=== PATIENT | female | born 2000 | race Asian ===

== ENCOUNTER 2023-03-30 15:19 | Outpatient (CLI) | payer MEDICAID ==
--- NOTE | 2023-03-30 16:32 | Ultrasound Report ---
PROCEDURE: OB First Trimester w/TV INDICATIONS: POSITIVE TEST OUTSIDE/PRIOR DATING DATA: Last menstrual period (LMP): 01/10/2023. LMP-based estimated date of delivery (KAIN): 10/17/2023. First dating scan (date and location): Today's exam. Estimated date of delivery (KAIN) from first dating scan: 10/15/2023. TECHNIQUE: Real-time scanning was performed of the fetus and maternal pelvic organs, with image documentation. Endovaginal scanning was also performed to better visualize the fetus and maternal ovaries. COMPARISON: None. FINDINGS: Intrauterine gestational sac present. Embryo: The embryo measures 4.8 cm, corresponding to 11 weeks 4 days. Heart rate: 176 bpm. Other: No perigestational fluid collection. Measurement variability in dating: +/- 4 weeks by LMP, +/- 7 days by mean sac diameter (use before 6 weeks gestation if crown-rump length not able to be measured), +/- 5 days by crown-rump length (6-12 weeks gestation). Maternal organs: Corpus luteum in the right ovary. 3.9 cm intramural fibroid in the anterior uterus. IMPRESSION: Single living intrauterine at 11 weeks 4 days, KAIN of 10/15/2023. Findings are concordant wit h clinical dating. Reviewed by: Jose Gonzalez on 03/30/2023 4:31 PM PDT Approved by: Jose Gonzalez on 03/30/2023 4:31 PM PDT Station ID: [id number]
== END 2023-03-30 15:20 | disposition home or self-care (01) ==
LOC: DI 15:19
PROVIDERS: ATTEND Family Medicine
DX: O34.81 Maternal care for other abnormalities of pelvic organs, first trimester (principal); N83.11 Corpus luteum cyst of right ovary; Z3A.11 11 weeks gestation of pregnancy

== ENCOUNTER 2023-03-31 13:51 | Outpatient (CLI) | payer MEDICAID | END 2023-03-31 13:52 | disposition home or self-care (01) | LOC: LAB.N 13:51 | PROVIDERS: ATTEND Nurse Practitioner | DX: Z53.9 Procedure and treatment not carried out, unspecified reason (principal) ==

== ENCOUNTER 2023-03-31 14:26 | Outpatient (CLI) | payer MEDICAID ==
[2023-03-31 15:05] LABS: BILIRUBIN,URINE NEGATIVE (NEGATIVE); GLUCOSE, URINE (UA) NEGATIVE (NEGATIVE); KETONES,URINE (UA) NEGATIVE (NEGATIVE); LEUKOCYTE ESTERASE, URINE LARGE (NEGATIVE); NITRITE,URINE NEGATIVE (NEGATIVE); OCCULT BLOOD,URINE NEGATIVE (NEGATIVE); PH,URINE 7.5 PH (5.0-7.5); PROTEIN,URINE TRACE mg/dL (NEGATIVE); UROBILINOGEN,URINE 0.2 (NORMAL) E.U./dL (NORMAL)
[2023-03-31 15:14] LABS: BASOPHILS # (AUTO) 0.1 10^3/uL (0.0-0.1); BASOPHILS % (AUTO) 0.8 %; EOSINOPHILS # (AUTO) 0.2 10^3/uL (0.0-0.7); HGB - HEMOGLOBIN 14.5 g/dL (12.0-16.0); LYMPHOCYTES # (AUTO) 2.5 10^3/uL (1.5-3.5); LYMPHOCYTES % (AUTO) 29.1 %; MEAN CORPUSCULAR HEMOGLOBIN 29.6 pg (27.0-31.0); MEAN CORPUSCULAR HGB CONC 34.5 g/dL (32.0-36.0); MEAN CORPUSCULAR VOLUME 85.7 fL (81.0-99.0); MONOCYTES # (AUTO) 0.6 10^3/uL (0.0-1.0); MONOCYTES % (AUTO) 7.2 %; NEUTROPHILS # (AUTO) 5.3 10^3/uL (1.5-6.6); NEUTROPHILS % (AUTO) 60.7 %; PLT - PLATELET COUNT 311 10^3/uL (130-450); RED CELL DISTRIBUTION WIDTH 13.4 % (12.0-15.0); WHITE BLOOD COUNT 8.7 x10^3/uL (4.8-10.8)
[2023-03-31 15:29] LABS: CLARITY,URINE HAZY (CLEAR)
[2023-03-31 15:41] LABS: AMORPHOUS SEDIMENT,UR Moderate /LPF; BACTERIA,URINE Few /HPF (None Seen); RBC,URINE 0-5 /HPF (0-5); SQUAMOUS EPITHELIAL CELL,UR MANY Squamous (<= Few)
[2023-04-01 08:10] LABS: HBsAG SCREEN Negative (Negative); RPR Non Reactive (Non Reactive); VARICELLA-ZOSTER AB IGG <135 index (Immune >165)
[2023-04-01 19:07] LABS: HCV AB Non Reactive (Non Reactive); HIV SCREEN 4TH GENERATION Non Reactive (Non Reactive)
== END 2023-03-31 14:27 | disposition home or self-care (01) ==
LOC: LAB 14:26
PROVIDERS: ATTEND Nurse Practitioner
DX: Z34.80 Encounter for supervision of other normal pregnancy, unspecified trimester (principal); Z36.89 Encounter for other specified antenatal screening
CPT/HCPCS: 36415; 81001; 85025; 86592; 86762; 86787; 86803; 86850; 86900; 86901; 87086; 87340; 87389

== ENCOUNTER 2023-04-28 15:44 | Outpatient (CLI) | payer MEDICAID ==
[2023-04-28 21:10] LABS: BACTERIAL VAGINOSIS DNA POSITIVE (NEGATIVE); CANDIDA GLABRATA DNA NEGATIVE (NEGATIVE); CANDIDA GROUP DNA NEGATIVE (NEGATIVE); CANDIDA KRUSEI DNA NEGATIVE (NEGATIVE); TRICHOMONAS VAGINALIS DNA NEGATIVE (NEGATIVE)
[2023-04-28 22:22] LABS: CHLAMYDIA TRACHOMATIS DNA NEGATIVE (NEGATIVE); NEISSERIA GONORRHOEAE DNA NEGATIVE (NEGATIVE)
== END 2023-04-28 15:45 | disposition home or self-care (01) ==
LOC: LAB.WC 15:44
PROVIDERS: ATTEND Obstetrics & Gynecology
DX: N89.8 Other specified noninflammatory disorders of vagina (principal); Z11.3 Encounter for screening for infections with a predominantly sexual mode of transmission
CPT/HCPCS: 81514; 87491; 87591; 87661

== ENCOUNTER 2023-05-26 10:13 | Outpatient (CLI) | payer MEDICAID ==
[2023-05-26 11:53] LABS: ESTIMATED AVERAGE GLUCOSE 103 mg/dL (70-100); HEMOGLOBIN A1c% 5.2 % (4.27-6.07)
[2023-05-31 13:10] LABS: AFP MOM See interpretation. (.); AFP VALUE 63.2 ng/mL (.); GESTAT. AGE METHOD As provided (.); MATERNAL AGE AT EDD 25.8 yr (.); OPEN SPINA BIFIDA RISK 1 IN See interpretation. (.); RESULTS Report (.); TEST RESULTS See interpretation. (.)
== END 2023-05-26 10:14 | disposition home or self-care (01) ==
LOC: LAB 10:13
PROVIDERS: ATTEND Obstetrics & Gynecology
DX: O99.210 Obesity complicating pregnancy, unspecified trimester (principal); E66.9 Obesity, unspecified
CPT/HCPCS: 36415; 82105; 83036

== ENCOUNTER 2023-06-04 16:08 | Outpatient (CLI) | payer MEDICAID ==
--- NOTE | 2023-06-05 08:26 | Ultrasound Report ---
PROCEDURE: OB Detailed Eval INDICATIONS: SUPERVISION OF OUTSIDE/PRIOR DATING DATA: Last menstrual period (LMP): 01/10/2023. LMP-based estimated date of delivery (KAIN): 10/17/2023. First dating scan (date and location): 03/30/2023. Estimated date of delivery (KAIN) from first dating scan: 10/15/2023. TECHNIQUE: Real-time scanning was performed of the fetus, with image documentation and biometric measurements. COMPARISON: 03/30/2023 FINDINGS: General: A single living intrauterine gestation is present. Presentation: Vertex Placenta: Placental position is anterior, without previa. Amniotic fluid index: 15.6 cm, within normal limits for gestational age. heart rate: 158 beats per minute. Maternal cervical canal: 4.9 cm long; normal length is 2.5 cm or more. biometrics: Biparietal diameter: 4.97 cm, 21 weeks, 51st percentile Head circumference: 19.1 cm, 21 weeks and 3 days, 58th percentile Abdominal circumference: 16.78 cm, 21 weeks and 5 days, 68th percentile Femur length: 3.42 cm, 20 weeks and 5 days, 32nd percentile Estimated gestational age from initial scan: 21 weeks Composite gestational age from present scan: 21 weeks Estimated weight and percentile: 413 g, 61st percentile Measurement variability in biometric dating: +/- 10 days from 12-20 weeks gestation, +/- 2 weeks from 20-30 weeks gestation, +/- 3 weeks at 30 weeks gestation or later. Anatomic survey: Neuro: Ventricles are normal at less than 10 mm. Cisterna magna is normal at 3-11 mm. Cerebellum is normal in size and morphology. Nuchal skin fold: Normal at less than 6 mm between 14 and 20 weeks gestational age. Face: Nose and lips, facial profile are normal. Spine: No evidence for spina bifida. Heart: 4-chambered heart is present, with normal ventricular outflow tracts. Diaphragm: Diaphragm is intact. Stomach: Left-sided stomach is present. Kidneys: No hydronephrosis. Normal is less than 5 mm in 2nd trimester, less than 7 mm in 3rd trimester. Cord: 3 vessel cord has orthotopic insertion. Bladder: Normal in size. Extremities: All 4 extremities are visualized. IMPRESSION: Living intrauterine gestation at 20 weeks of gestational age, with concordant biometry. EFW at the 61 st percentile. No significant abnormalities on routine anatomic survey. Reviewed by: Anibal Ham MD on 06/05/2023 8:25 AM PST Approved by: Anibal Ham MD on 06/05/2023 8:25 AM PST Station ID: [id number]
== END 2023-06-04 16:09 | disposition home or self-care (01) ==
LOC: DI 16:08
PROVIDERS: ATTEND Obstetrics & Gynecology
DX: Z34.82 Encounter for supervision of other normal pregnancy, second trimester (principal); Z36.89 Encounter for other specified antenatal screening; Z3A.20 20 weeks gestation of pregnancy

== ENCOUNTER 2023-07-28 13:45 | Outpatient (CLI) | payer MEDICAID | END 2023-07-28 13:46 | disposition home or self-care (01) | LOC: LAB.N 13:45 | PROVIDERS: ATTEND Obstetrics & Gynecology | DX: Z53.9 Procedure and treatment not carried out, unspecified reason (principal) | CPT/HCPCS: 82950; 85027 ==

== ENCOUNTER 2023-07-30 13:24 | Outpatient (CLI) | payer MEDICAID ==
[2023-07-30 18:14] LABS: HCT - HEMATOCRIT 39.7 % (37.0-47.0); HGB - HEMOGLOBIN 13.8 g/dL (12.0-16.0); MEAN CORPUSCULAR HEMOGLOBIN 31.5 pg (27.0-31.0); MEAN CORPUSCULAR HGB CONC 34.8 g/dL (32.0-36.0); MEAN CORPUSCULAR VOLUME 90.6 fL (81.0-99.0); MEAN PLATELET VOLUME 9.2 fL (7.9-10.8); RED BLOOD COUNT 4.38 10^6/uL (4.20-5.40); RED CELL DISTRIBUTION WIDTH 13.5 % (12.0-15.0); WHITE BLOOD COUNT 7.2 x10^3/uL (4.8-10.8)
== END 2023-07-30 13:25 | disposition home or self-care (01) ==
LOC: LAB.N 13:24
PROVIDERS: ATTEND Obstetrics & Gynecology
DX: Z34.80 Encounter for supervision of other normal pregnancy, unspecified trimester (principal)
CPT/HCPCS: 36415; 82950; 85025; 85027

== ENCOUNTER 2023-09-13 12:34 | Outpatient (CLI) | payer MEDICAID ==
--- NOTE | 2023-09-13 15:23 | Ultrasound Report ---
PROCEDURE: OB Follow up INDICATIONS: GESTATIONAL DIABETES OUTSIDE/PRIOR DATING DATA: Last menstrual period (LMP): 01/10/2023. LMP-based estimated date of delivery (KAIN): 10/17/2023. First dating scan (date and location): 03/30/2023. Estimated date of delivery (KAIN) from first dating scan: 10/15/2023. The below data below was generated using the ultrasound KAIN of 10/15/2023 TECHNIQUE: Real-time scanning was performed of the fetus, with image documentation and biometric measurements. Endovaginal scanning: Not performed. COMPARISON: 06/04/2023 FINDINGS: General: A single living intrauterine gestation is present. Presentation: Vertex Placenta: Placental position is anterior, without previa. Amniotic fluid index: 9.9 cm, within normal limits for gestational age. heart rate: 148 beats per minute. Maternal cervical canal: 3.4 cm long; normal length is 2.5 cm or more. biometrics: Biparietal diameter: 8.3 cm, 33 weeks 3 days, 8.3 percentile Head circumference: 31.2 cm, 34 weeks 6 days, 10.4 percentile Abdominal circumference: 30.9 cm, 34 weeks 6 days, 41.6 percentile Femur length: 7.0 cm, 36 weeks. Base, 57.9 percentile Estimated gestational age from initial scan: 35 weeks 3 days Composite gestational age from present scan: 34 weeks 6 days Estimated weight and percentile: 2573 g, 36.8 percentile Measurement variability in biometric dating: +/- 10 days from 12-20 weeks gestation, +/- 2 weeks from 20-30 weeks gestation, +/- 3 weeks at 30 weeks gestation or more. Other: Not applicable. IMPRESSION: Living third trimester intrauterine . Current ultrasound age is 4 days less dionisio n clinical age based on initial first trimester ultrasound. Estimated weight is 36.8 percentile . Reviewed by: Destin Narvaez MD on 09/13/2023 3:22 PM PDT Approved by: Destin Narvaez MD on 09/13/2023 3:22 PM PDT Station ID: [id number]
== END 2023-09-13 12:35 | disposition home or self-care (01) ==
LOC: DI 12:34
PROVIDERS: ATTEND Obstetrics & Gynecology
DX: O24.419 Gestational diabetes mellitus in pregnancy, unspecified control (principal); Z3A.34 34 weeks gestation of pregnancy

== ENCOUNTER 2023-09-22 08:00 | Outpatient (CLI) | payer MEDICAID | END 2023-09-22 23:59 | disposition home or self-care (01) | LOC: LAB.WC 08:00 | PROVIDERS: ATTEND Obstetrics & Gynecology | DX: Z36.85 Encounter for antenatal screening for Streptococcus B (principal) | CPT/HCPCS: 87797 ==

== ENCOUNTER 2023-10-20 08:18 | Outpatient (CLI) | payer MEDICAID ==
[2023-10-20 08:37] VITALS: BP 120/80
--- NOTE | 2023-10-20 19:24 | PROCEDURE REPORT ---
- HPI Diagnosis/Indication for NST: Other (40+ weeks) Current EDU 10/17/23 Gestation 40 Weeks and 3 Days 3 Para 2 Vital Signs Temperature 97.5 F L 10/20/23 08:26 Heart Rate 79 10/20/23 08:26 Respiratory Rate 16 10/20/23 08:26 Blood Pressure 120/80 10/20/23 08:26 Temperature 97.5 F L 10/20/23 08:26 Heart Rate 79 10/20/23 08:26 Respiratory Rate 16 10/20/23 08:26 Blood Pressure 120/80 10/20/23 08:26 O2 Saturation If not protocol: Oxygen Flow, liters/minute - NST Procedure NST Procedure Start Date 10/20/23 Start Time 08:25 Stop Time 08:50 Vibroacoustic Stimulation Used No Patient States Movement Yes - Results and Plan Findings/Impression: Reactive for of 32 weeks gestation or more. NST tracing contains at least two heart rate accelerations that are at least 15 beats per minute above the baseline rate and lasting at least 15 seconds from onset to return to baseline within a twenty minute period. Plan: here for induction today but unit is too busy. Discharged home and hopefully can come back on Wednesday.
== END 2023-10-20 09:00 | disposition home or self-care (01) ==
LOC: FBP 08:18 → WFO 08:18
PROVIDERS: ATTEND Obstetrics & Gynecology
DX: O48.0 Post-term pregnancy (principal); Z3A.40 40 weeks gestation of pregnancy
CPT/HCPCS: 59025

== ENCOUNTER 2023-10-21 22:27 | Inpatient (IN) | payer MEDICAID ==
[2023-10-21 23:04] LABS: RUPTURE OF MEMBRANES PLUS NEGATIVE (NEGATIVE)
[2023-10-22] MEDS ORDERED: fentaNYL 100 MCG/2 ML VIAL IVP PRN ×2 (00:39→02:33)
[2023-10-22] MEDS ORDERED: NIFEdipine 10 MG CAPSULE PO PRN (00:39)
[2023-10-22] MEDS ORDERED: METHYLERGONOVINE 0.2 MG/ML VIAL IM PRN (00:39)
[2023-10-22] MEDS ORDERED: CARBOPROST TROMETHAMINE 250 MCG/ML VIAL IM PRN (00:39)
[2023-10-22] MEDS ORDERED: TRANEXAMIC ACID IN NACL 1,000 MG/100 ML BAG IV PRN (00:39)
[2023-10-22] MEDS ORDERED: lidocaine 1% 20 ML MDV ID PRN (00:39)
[2023-10-22] MEDS ORDERED: hydrALAZINE INJ 20 MG/ML VIAL IVP PRN ×2 (00:39)
[2023-10-22] MEDS ORDERED: miSOPROStoL 200 MCG TABLET BC PRN (00:39)
[2023-10-22] MEDS ORDERED: OXYTOCIN 10 UNIT/ML VIAL IM PRN (00:39)
[2023-10-22] MEDS ORDERED: miSOPROStoL 200 MCG TABLET PR PRN (00:39)
[2023-10-22] MEDS ORDERED: SODIUM CHLORIDE FLUSH 0.9% 10 ML SYRINGE IVP PRN (00:39)
[2023-10-22] MEDS ORDERED: TERBUTALINE 1 MG/ML VIAL SUBQ PRN (00:39)
[2023-10-22] MEDS ORDERED: LABETALOL 20 MG/4 ML SYRINGE IVP PRN ×3 (00:39)
[2023-10-22] MEDS ORDERED: SODIUM CHLORIDE FLUSH 0.9% 10 ML SYRINGE IVP SCH (01:00)
[2023-10-22 01:21] LABS: BASOPHILS % (AUTO) 0.3 %; EOSINOPHILS % (AUTO) 0.2 %; HCT - HEMATOCRIT 44.7 % (37.0-47.0); HGB - HEMOGLOBIN 15.3 g/dL (12.0-16.0); LYMPHOCYTES # (AUTO) 2.7 10^3/uL (1.5-3.5); LYMPHOCYTES % (AUTO) 26.1 %; MEAN CORPUSCULAR HEMOGLOBIN 30.7 pg (27.0-31.0); MEAN CORPUSCULAR HGB CONC 34.2 g/dL (32.0-36.0); MEAN CORPUSCULAR VOLUME 89.8 fL (81.0-99.0); MEAN PLATELET VOLUME 9.6 fL (7.9-10.8); MONOCYTES # (AUTO) 0.6 10^3/uL (0.0-1.0); MONOCYTES % (AUTO) 6.1 %; NEUTROPHILS % (AUTO) 66.7 %; PLT - PLATELET COUNT 261 10^3/uL (130-450); RED BLOOD COUNT 4.98 10^6/uL (4.20-5.40); RED CELL DISTRIBUTION WIDTH 13.2 % (12.0-15.0); WHITE BLOOD COUNT 10.4 x10^3/uL (4.8-10.8)
[2023-10-22] MEDS: LACTATED RINGERS 1,000 ML IV PRN (01:23)
--- NOTE | 2023-10-22 01:30 | HISTORY & PHYSICAL EXAMINATION ---
Admit History - Visit Reason Visit Reason: Contractions - : 3 Parity: 2 Complications This : positive: Gestational diabetes (A1) - Mother's Labs Mother's Blood Type: positive: O Mother's RH: positive: Positive GBS: positive: Group B Step Negative Rubella Status: positive: Immune - Other Maternal History Other Maternal History: HPI: This 23yo @ 40+5 weeks by LMP and confirmed by 11+4 week ultrasound, presents to [facility] in early labor. Had been hay since yesterday morning, became more intense later in the evening and presented to [facility] for labor evaluation at approximately 23:00 on 10/21/2023 At which time she was 3.5/100/-2 an hour later she progressed to 4/100/-2. Now, at 01:15, she was 7/100/-1. Maternal desires for epidural anesthesia prior to intervention. She has been a patient of [facility] for the duration of her . Diet controlled GDM. 09/13/23 growth scan 35 weeks, SELINA 9.9cm, EFW 38%. course otherwise uncomplicated. Older children living with family in [facility] [place]. Dating criteria: KAIN by LMP 10/17/2023 Initial u/s @ 11+4 wks dates with KAIN 10/17/2023. 35 week growth scan from 09/13/23, SELINA 9.9cm, EFW 38% OB Hx: # 1 Delivery date: 08/04/2017 Weeks Gestation: 40 Delivery type: Delivery location: [facility] [place] Sex: Female weight: 3600g Name: Tracie # 2 Delivery date: 10/17/2018 Weeks Gestation: 40 Delivery type: Delivery location: [facility] Infant Sex: Male weight: 3300g Name: Nikolay Allergies: NKDA Medications: No medication Course: O positive, antibody negative Rubella immune, Varicella non-immune Hep B neg, Hep C neg HIV non-reactive, RPR non-reactive GCCT negative Genetic screening: Declined. A1C 5.2% 1hr gtt: 197 Tdap: 07/21/23 GBS: neg Physical exam: Head: Normocephalic, atraumatic Abdomen gravid, soft, nontender. EFW 3300 FHR baseline 140, moderate variability, + accelerations, no decelerations Hay regularly, strong 7/100/-1, epidural pending, membranes intact Bilateral LE's no edema Mood is good. Assessment: 23 yo @ 40+5 weeks gestation by LMP (confirmed by u/s) Term gestation FHR Cat I GBS NEG A1GDM Plan: Admit to [facility] for labor Continuous monitoring. Anticipate . - HPI Current EDU 10/17/23 Gestation 40 Weeks and 4 Days 3 Para 2 Vital Signs Temperature 98.2 F 10/21/23 22:39 Heart Rate 77 10/21/23 22:39 Respiratory Rate 16 10/21/23 22:39 Temperature 98.2 F 10/21/23 22:39 Heart Rate 77 10/21/23 22:39 Respiratory Rate 16 10/21/23 22:39 Blood Pressure O2 Saturation If not protocol: Oxygen Flow, liters/minute - NST Procedure NST Procedure Start Date 10/21/23 Start Time 22:33 Stop Time 22:53 Vibroacoustic Stimulation Used No Patient States Movement Yes Physical - Abdominal Exam Vital Signs: Temp Pulse Resp BP Pulse Ox O2 Flow Rate 98.2 F 77 16 10/21/23 22:39 10/21/23 22:39 10/21/23 22:39 Plan for Labor - Plan For Labor I expect patient to be DC'd or transferred within 96 hours.: Yes
[2023-10-22] MEDS ORDERED: ROPIVACAINE 0.2% 200 MG/100 ML BAG EP ONE (01:38)
[2023-10-22] MEDS ORDERED: LIDOCAINE 2%-EPI 1:100000 20 ML MDV ONE (01:39)
[2023-10-22] MEDS ORDERED: ePHEDrine 50 MG/ML VIAL IVP ONE (02:07)
[2023-10-22] MEDS: ePHEDrine 50 MG/ML VIAL IVP PRN (02:07)
[2023-10-22] MEDS ORDERED: ATROPINE ABBOJECT 1 MG/10 ML SYRINGE IVP PRN (02:33)
[2023-10-22] MEDS ORDERED: ONDANSETRON 4 MG/2 ML VIAL IVP PRN ×3 (02:33→04:21)
[2023-10-22] MEDS ORDERED: MORPHINE 2 MG/ML CARPUJECT IVP PRN (02:33)
[2023-10-22] MEDS ORDERED: METOCLOPRAMIDE 10 MG/2 ML VIAL IVP PRN ×2 (02:33→04:21)
[2023-10-22] MEDS ORDERED: NALOXONE 0.4 MG/ML VIAL IVP PRN ×2 (02:33→04:21)
[2023-10-22] MEDS ORDERED: HYDROmorphone 0.5 MG/0.5 ML SYRINGE IVP PRN (02:33)
--- NOTE | 2023-10-22 02:33 | ANESTHESIA ---
Pre-Anesthesia VS, & Labs - Diagnosis labor pain - Procedure labor epidural Vital Signs: Temp Pulse Resp BP Pulse Ox O2 Flow Rate 36.8 C 80 16 10/22/23 00:45 10/22/23 00:45 10/22/23 00:45 Height: 5 ft 3 in Weight (kg): 204 kg Body Mass Index: 79.6 BMI Classification: Morbidly Obese - NPO Other - Is Patient ?: Yes - Lab Results Current Lab Results: Laboratory Tests 10/22/23 01:02: WBC 10.4, RBC 4.98, Hgb 15.3, Hct 44.7, MCV 89.8, MCH 30.7, MCHC 34.2, RDW 13.2, Plt Count 261, MPV 9.6, Neut # (Auto) 7.0 H, Lymph # (Auto) 2.7, Inyo # (Auto) 0.6, Eos # (Auto) 0.0, Baso # (Auto) 0.0, Absolute Nucleated RBC 0.00, Nucleated RBC % 0.0 Fish Bones: 10/22/23 01:02 Home Medications and Allergies Active Medications Carboprost Tromethamine (Carboprost Tromethamine 250 Mcg/Ml Vial) 250 mcg IM .ONCE PRN PRN Reason: Hemorrhage Fentanyl (Fentanyl 100 Mcg/2 Ml Vial) 50 mcg IVP Q1H PRN PRN Reason: Severe Pain (score 7-10) Hydralazine HCl (Hydralazine Inj 20 Mg/Ml Vial) 5 - 10 mg IVP Q20M PRN; Protocol PRN Reason: SBP> or= 160 OR DBP> or= 110 Hydralazine HCl (Hydralazine Inj 20 Mg/Ml Vial) 10 mg IVP .ONCE PRN; Protocol PRN Reason: SBP> or= 160 OR DBP> or= 110 Lactated Ringer's (Lr) 500 mls @ 999 mls/hr IV PRN PRN PRN Reason: PER PHYSICIAN ORDER Last Admin: 10/22/23 01:23 Dose: 999 mls/hr Oxytocin/Sodium Chloride (Pitocin/Sodium Chloride) 500 mls @ 999 mls/hr IV PRN PRN; Protocol PRN Reason: POST- HEMORR PREVENTION Tranexamic Acid (Tranexamic 1,000 Mg/100ml-Nacl) 1,000 mg in 100 mls @ 600 mls/hr IV Q30M PRN PRN Reason: EBL >1200mL and within 3hr Labetalol HCl (Labetalol 20 Mg/4 Ml Syringe) 20 - 80 mg IVP Q10M PRN; Protocol PRN Reason: SBP> or= 160 OR DBP> or= 110 Labetalol HCl (Labetalol 20 Mg/4 Ml Syringe) 20 mg IVP .ONCE PRN; Protocol PRN Reason: SBP> or= 160 OR DBP> or= 110 Labetalol HCl (Labetalol 20 Mg/4 Ml Syringe) 20 - 40 mg IVP Q10M PRN; Protocol PRN Reason: SBP> or= 160 OR DBP> or= 110 Lidocaine HCl (Lidocaine 1% 20 Ml Mdv) 20 ml ID .ONCE PRN PRN Reason: PERINEAL REPAIR Stop: 10/25/23 00:40 Methylergonovine Maleate (Methylergonovine 0.2 Mg/Ml Vial) 0.2 mg IM .ONCE PRN PRN Reason: Hemorrhage Misoprostol (Misoprostol 200 Mcg Tablet) 600 mcg BC .ONCE PRN PRN Reason: Hemorrhage Misoprostol (Misoprostol 200 Mcg Tablet) 800 mcg TN .ONCE PRN PRN Reason: Hemorrhage Nifedipine (Nifedipine 10 Mg Capsule) 10 - 20 mg PO Q20M PRN; Protocol PRN Reason: SBP> or= 160 OR DBP> or= 110 Oxytocin (Oxytocin 10 Unit/Ml Vial) 10 unit IM .ONCE PRN PRN Reason: Step One if no IV access. Sodium Chloride (Sodium Chloride Flush 0.9% 10 Ml Syringe) 10 ml IVP PRN PRN PRN Reason: NEEDED PER PROVIDER ORDERS Sodium Chloride (Sodium Chloride Flush 0.9% 10 Ml Syringe) 10 ml IVP Q8H DAVID Terbutaline Sulfate (Terbutaline 1 Mg/Ml Vial) 0.25 mg SUBQ .ONCE PRN PRN Reason: Tachystole Anes History & Medical History - Anesthetic History Anesthesia Complications: reports: No previous complications Family history of Anesthesia Complications: Denies Family history of Malignant Hyperthermia: Denies - Medical History Cardiovascular: reports: None Pulmonary: reports: None Gastrointestinal: reports: None Urinary: reports: None Neuro: reports: None Smoking Status: Never smoker - Obstetrical History : 3 Parity: 2 Complications: reports: Gestational diabetes (A1) Exam General: Alert, Oriented x3, Cooperative Dental: WNL Mouth Openin Fingerbreadth Neck Mobility: Normal Mallampati classification: II Thyromental Distance: 4-6 cm Respiratory: Lungs clear Cardiovascular: Regular rate Plan Anesthesia Type: Epidural Consent for Procedure(s) Verified and Reviewed: Yes Code Status: Attempt Resuscitation ASA classification: 2-Mild systemic disease Is this case an emergency?: No
[2023-10-22] MEDS ORDERED: LACTATED RINGERS 1,000 ML IV SCH ×2 (03:00→04:00)
[2023-10-22] MEDS: OXYTOCIN/SODIUM CHLORIDE 500 ML IV PRN (03:21)
[2023-10-22] MEDS ORDERED: CALCIUM CARBONATE CHEW 500 MG TABLET PO PRN (03:37)
[2023-10-22] MEDS ORDERED: SIMETHICONE CHEW 80 MG TABLET PO PRN (03:37)
--- NOTE | 2023-10-22 03:42 | DELIVERY NOTE ---
Delivery Note - Labor Labor: positive: Spontaneous - Delivery Method Delivery Method: positive: Spontaneous vaginal delivery - Presentation Presentation: positive: LISSY - right occiput anterior - Nuchal Cord Nuchal Cord: positive: Present, Reduced - Anesthetic Anesthetic Type: - Amniotic Fluid Description Amniotic Fluid Description: positive: Clear - Laceration Laceration: positive: 1st degree - Suture Suture Type: positive: Vicryl Suture Size: positive: 3-0 - [place]: positive: Placed in direct skin contact with mother [place] sex: positive: Male - Cord Cord: positive: 3 vessels - Placenta Placenta: positive: Intact - Delivery Comments (Free Text/Narrative) Delivery Comments (Free Text/Narrative): Vita-wlid-fst, G 3 P 2 . @ 40+5 gestation by LMP and confirmed by 11+4 week ultrasound presented @ 22:30 on 10/21/2023 time in active labor. Cervix was 3.5/70 and Vertex. Complete GBS negative, treated. FHR pattern demonstrated 140 baseline in a category I. Normal labor course. Epidural placed upon maternal request. AROM occurred @ 0228, Complete @ 0256, pushing began @ 0256. : Normal spontaneous vaginal delivery of a viable male infant on 10/22/2023 @ 0306. Nuchal x1, reduced. The was placed on maternal abdomen, stimulated, dried and placed skin to skin. Apgars 9 at 1 min, and 9 at 5 minutes. Oxytocin administered via IV for hemostasis. The umbilical cord was al lowed to stop pulsating at which time it was doubly clamped by delivering provider and cut by FOB. 3VC. Cord blood was obtained. Fundal massage and gently cord traction applied for active management of the third stage, placenta delivered spontaneously and intact @0321 time. EBL 150. Uterine fundus firm and there is no excessive bleeding. The perineum, vagina, and cervix were inspected. 1st degree perineal laceration repaired under epidural anesthesia 3-0 vicryl rapide, repaired in standards fashion under sterile conditions. Vaginal and rectal examination following the repair was done. Tissues well approximated. Skin to skin initiated. Family bonding well. Both mother and baby are in stable condition.
[2023-10-22] MEDS ORDERED: ROPIVACAINE 0.2% 200 MG/100 ML BAG EP PRN (04:21)
[2023-10-22] MEDS ORDERED: NALBUPHINE 10 MG/ML AMP IVP PRN (04:21)
[2023-10-22] MEDS ORDERED: ePHEDrine 50 MG/ML VIAL IVP PRN (04:21)
[2023-10-22] MEDS ORDERED: diphenhydrAMINE INJ 50 MG/ML VIAL IVP PRN (04:21)
[2023-10-22] MEDS: IBUPROFEN 600 MG TABLET PO SCH (08:27)
[2023-10-22] MEDS: ACETAMINOPHEN 500 MG TABLET PO SCH (08:27)
[2023-10-22] MEDS: DOCUSATE SODIUM 100 MG CAPSULE PO PRN (08:28)
--- NOTE | 2023-10-22 10:32 | PHARMACY PROGRESS NOTE ---
- Best Possible Medication History Admit Date and Time: 10/22/23 0040 Processed by: Nursing As the person ultimately responsible for medication therapy, providers are able to order a medication from an existing home medication list in [facility] via the "Reconcile Routine" prior to Confirmation of that medication by aviation support equipment repairer. Such practice is discouraged except when the physician, in their clinical judgment, deems that a medical need exists for a medication without regard to previous use.
[2023-10-23 08:20] VITALS: BP 82/57; O2SAT 99
--- NOTE | 2023-10-23 09:54 | Discharge Plan ---
Discharge Plan Problem Reviewed?: Yes Disposition: Home, Self Care Condition: Good Diet: Regular Activity Restrictions: No Restrictions Shower Restrictions: No Driving Restrictions: Yes (Drive when comfortable without pain medications.) Weight Bearing: Full Weight Instruction Topics: Vaginal After Additional Instructions or Follow Up instructions: Follow up 11/01/2023 at [facility] No Smoking: If you smoke, Please STOP! Call for help.
--- NOTE | 2023-10-23 10:13 | DISCHARGE SUMMARY ---
Discharge Summary Admit Date: 10/22/23 Discharge Date: 10/23/23 Discharging Provider: Katie Vaca DO Code Status: Attempt Resuscitation Condition at Discharge: Good Discharge Disposition: 01 Home, Self Care Discharge Facility Name: [facility] - DIAGNOSES Admission Diagnoses: 23yo admitted in active labor at 40.5w on 10/22/23. - HPI History of Present Illness: 23yo presented in active labor at 40.5w on 10/22/23. She received an epidural and progressed to 10cm. Uncomplicated . - HOSPITAL COURSE Hospital Course: 23yo presented in active labor at 40.5w on 10/22/23. She received an epidural and progressed to 10cm. Uncomplicated . First degree laceration repaired. She is recovering well and would like to go home PPD#1. Comfortable. Appropriate lochia. Ambulating. Voiding. Tolerating regular diet. well. Mood is good. care reviewed, all questions answered. Varicella non-immune, vaccine ordered prior to discharge. Needs diabetes GTT. Follow up 11/01/23 9515. - ALLERGIES Allergies/Adverse Reactions: Allergies Allergy/AdvReac Type Severity Reaction Status Date / Time No Known Drug Allergies Allergy Verified 10/22/23 04:28 - MEDICATIONS Home Medications: Ambulatory Orders Medication Instructions Recorded Confirmed No122/Iron/Folic Acid 1 tab PO DAILY 10/22/23 10/22/23 [ Multi Tablet] - PHYSICAL EXAM AT DISCHARGE General Appearance: positive: No acute distress Respiratory: positive: No respiratory distress Cardiovascular: positive: Other (Regular rate) Abdomen: positive: Non-tender Skin: positive: Color nml Extremities: positive: Non-tender Neurologic/Psychiatric: positive: Oriented x3 - LABS Result Diagrams: 10/22/23 01:02 - QUALITY (Female Hip Fx Only) Was patient sent home on osteoporosis medication?: No - FOLLOW UP Follow Up: 11/01/23 1515 - TIME SPENT Time Spent in Discharge (Minutes): 25
[2023-10-23] MEDS: VARICELLA VACCINE LIVE/PF 1,350 UNIT/0.5 ML VIAL SUBQ ONE (11:13)
--- NOTE | 2023-10-23 13:51 | Labor Flowsheet ---
Labor Flowsheet Datetime Report Generated by CPN: 10/23/2023 13:51 Datetime: 10/23/2023 07:45 VITAL SIGNS NBP Sys/Caryn/Mean (mmHg): 82 : 57 : 62 Pulse: 84 SpO2 (%): 98 Datetime: 10/22/2023 04:30 Respirations: 16 PAIN Pain Scale: 0 Datetime: 10/22/2023 03:40 Hygiene: Bita Care; Underpad Changed; Peripad Changed Anesthesia Comments: DC'd tip intact Datetime: 10/22/2023 03:30 Anesthesia Level Check: T10- Umbilicus Datetime: 10/22/2023 03:09 Membranes Ruptured Date/Time: 08/11/2023 02:28 Datetime: 10/22/2023 03:07 Stage of : Recovery Datetime: 10/22/2023 03:02 UTERINE ACTIVITY Monitor Mode: External Frequency (min): 2 Quality: Strong Duration (sec): 60 Pattern: Normal: <= 5 Contractions in 10 Minutes Resting Tone (Palpate): Relaxed Variability: Moderate 6-25 bpm Decelerations: None Category: Category I Datetime: 10/22/2023 02:56 VAGINAL EXAM Dilatation (cm): 10.0 Datetime: 10/22/2023 02:53 FHR Baseline Rate : 120 Accelerations: 15X15 Datetime: 10/22/2023 02:38 FHR Baseline Changes: No Baseline Change Datetime: 10/22/2023 02:27 Membrane Status: Ruptured Membranes Rupture Method: Artificial Amniotic Fluid Color: Clear Amniotic Fluid Amount: Small Datetime: 10/22/2023 02:23 COMMUNICATION Communication: RN at Bedside; RN Reviewed Strip; Provider at Bedside Communication Comments: Nereida Stout, A Patrice at bs Datetime: 10/22/2023 02:21 Effacement (%): 100 Station: 0 Exam by: MKnudsen Vaginal Bleeding: Normal Show Cervix, Consistency: Soft Cervix, Position: Midposition Datetime: 10/22/2023 01:56 Epidural Procedure: Test Dose Datetime: 10/22/2023 01:40 ANESTHESIA Anesthesia Plans: Epidural Anesthesia Interview: E Epidural Positioning: Sitting Datetime: 10/22/2023 00:53 Monitor Interventions for UA: [place] Adjusted Datetime: 10/22/2023 00:52 Comments: Provider at bedside. Discussion in regards to ROM. Datetime: 10/21/2023 23:39 ASSESSMENT A Monitor Mode: External US Datetime: 10/21/2023 22:55 PATIENT CARE Patient Position/Activity: Walking TEACHING Instructional Method: Verbal Plan of Care: Plan of Care Discussed
== END 2023-10-23 11:30 | disposition home or self-care (01) | DRG 807 ==
LOC: WFO 22:27 → FBP 22:29 → WFO 10-22 00:40 → FBP 10-22 01:24
PROVIDERS: ADMIT Obstetrics & Gynecology; ATTEND Obstetrics & Gynecology
PROC: 10E0XZZ Delivery of Products of Conception, External Approach (ICD-10-PCS; principal; 2023-10-22)
PROC: 0HQ9XZZ Repair Perineum Skin, External Approach (ICD-10-PCS; 2023-10-22)
PROC: 10907ZC Drainage of Amniotic Fluid, Therapeutic from Products of Conception, Via Natural or Artificial Opening (ICD-10-PCS; 2023-10-22)
DX: O70.0 First degree perineal laceration during delivery (principal); Z37.0 Single live birth; O24.420 Gestational diabetes mellitus in childbirth, diet controlled; O48.0 Post-term pregnancy; Z3A.40 40 weeks gestation of pregnancy; O69.81X0 Labor and delivery complicated by cord around neck, without compression, not applicable or unspecified; Z23 Encounter for immunization
CPT/HCPCS: 59409; 84112; 85025; 86850; 86900; 86901; 90716; A9270; J7120